=== PATIENT | female | born 1995 | race Caucasian/White ===

== ENCOUNTER 2023-01-05 11:06 | Outpatient (CLI) | payer BC, SELFPAY ==
--- NOTE | 2023-01-05 11:19 | W.ANESCHARGE ---
Anesthesia Charges Start Date/Time Anesthesia Start Date: 01/05/23 Anesthesia Start Time: 11:53 Stop Date/Time Anesthesia Stop Date: 01/05/23 Anesthesia Stop Time: 12:15
--- NOTE | 2023-01-05 12:23 | W.ANESCHARGE ---
Anesthesia Charges Start Date/Time Anesthesia Start Date: 01/05/23 Anesthesia Start Time: 11:53 Stop Date/Time Anesthesia Stop Date: 01/05/23 Anesthesia Stop Time: 12:15
== END 2023-01-05 11:07 | disposition home or self-care (01) ==
PROVIDERS: Visit Provider Internal Medicine Gastroenterology
DX: K92.1 Melena (principal); K63.5 Polyp of colon; R19.7 Diarrhea, unspecified; Z83.79 Family history of other diseases of the digestive system
CPT/HCPCS: 00811; 00812; 45380; 45385; 88305; J2704